=== PATIENT | male | born 1965 | race Caucasian/White ===

== ENCOUNTER 2018-04-10 08:19 | Observation (INO) | payer BC, OTHER ==
[2018-04-10] MEDS ORDERED: KETOROLAC 30 MG/ML INJ ONE ×2 (09:18→16:20)
[2018-04-10 09:26] LABS: Absolute Lymphocytes (CBC) 1.2 K/uL (0.7-4.9); Absolute Monocytes 1.1 K/uL (0.1-1.3); Absolute Neutrophil 7.7 K/uL (1.8-8.0); Basophils % 0.5 % (0-1.3); Eosinophils % 2.5 % (0-4.4); Hematocrit 39.9 % (39.6-49.0); MCH 32.2 pg (27.0-35.0); MCV 93.2 fL (80-100); MPV 7.6 fL (7.6-11.3); Monocytes % 10.5 % (3.3-12.3); RBC Red Blood Cell Count 4.29 M/uL (4.33-5.43)
--- NOTE | 2018-04-10 09:26 | RAD REPORT ---
EXAM DESCRIPTION: CT - Stone Protocol - 04/10/2018 9:12 am CLINICAL HISTORY: Abdominal pain./right flank pain with hematuria COMPARISON: None. TECHNIQUE: Computed axial tomography of the abdomen pelvis was obtained without oral or IV contrast. Lack of IV and oral contrast limits evaluation of solid organs, bowel, and vessels. Coronal reformat maria ines images were obtained and reviewed. All CT scans are performed using dose optimization technique as appropriate and may include automated exposure control or mA/KV adjustment according to patient size. FINDINGS: A tiny left nonobstructing renal calculi Marked right hydronephrosis and right hydroureter. 8 millimeter calculus right UVJ Hounsfield unit 17 00. The liver, spleen, pancreas and adrenals appear grossly normal There is no evidence of diverticulitis. The appendix appears normal Small umbilical hernia IMPRESSION: A 8 millimeter calculus right UPJ with marked right hydronephrosis
[2018-04-10 09:39] LABS: Potassium 3.8 mmol/L (3.5-5.1)
[2018-04-10] MEDS ORDERED: CEFTRIAXONE/SWI 1gm 1 GM/10 ML SYR ONE (09:51)
[2018-04-10] MEDS ORDERED: MORPHINE 4 MG/ML SYR ONE ×2 (09:53→15:49)
--- NOTE | 2018-04-10 10:15 | ER ---
Nurse's Notes [facility] Name: Azeem Suarez Age: 53 yrs Sex: Male : 1965 Arrival Date: 04/10/2018 Time: 08:22 Bed 6 Private MD: None, None Diagnosis: Hydronephrosis with renal and ureteral calculous obstruction;Intractable abdominal pain Presentation: 04/10 08:25 Presenting complaint: Patient states: right flank pain that began yesterday. Pt reports aa5 nausea, denies vomiting. Pt also states "there has been some blood in my urine". 08:25 Transition of care: patient was not received from another setting of care. Onset of aa5 symptoms was April 2018. Risk Assessment: Do you want to hurt yourself or someone else? Patient reports no desire to harm self or others. Initial Sepsis Screen: Does the patient meet any 2 criteria? No. Patient's initial sepsis screen is negative. Does the patient have a suspected source of infection? No. Patient's initial sepsis screen is negative. Care prior to arrival: None. 08:25 Method Of Arrival: Ambulatory aa5 08:25 Acuity: NOÉ 3 aa5 Historical: - Allergies: 08:27 No Known Allergies; aa5 - Home Meds: 08:27 Unknown anxiety medication PRN [Active]; aa5 08:25 Adderall oral oral [Active]; aa5 - PMHx: 08:27 Anxiety; ADD/ADHD; Kidney stones; aa5 - PSHx: 08:27 Hernia repair; aa5 - Immunization history:: Flu vaccine is up to date. - Social history:: Smoking status: Patient uses tobacco products, smokes one-half pack cigarettes per day. - Ebola Screening: : No symptoms or risks identified at this time. Screenin:45 Abuse screen: Denies threats or abuse. Nutritional screening: No deficits noted. aa5 Tuberculosis screening: No symptoms or risk factors identified. Fall Risk None identified. Assessment: 08:30 General: Appears comfortable, Behavior is calm, cooperative. Pain: Complains of pain in aa5 right flank Pain does not radiate. Pain currently is 7 out of 10 on a pain scale. Quality of pain is described as sharp, shooting, Pain began 1 day ago. Is continuous. Neuro: Level of Consciousness is awake, alert, obeys commands, Oriented to person, place, time, situation. Cardiovascular: Heart tones S1 S2 present Rhythm is regular. Respiratory: Airway is patent Respiratory effort is even, unlabored, Respiratory pattern is regular, symmetrical. GI: Abdomen is round non-distended, Bowel sounds present X 4 quads. Abd is soft X 4 quads Abdomen is tender to palpation in anterior aspect of right lateral abdomen Reports nausea, Patient currently denies vomiting. : Reports blood in urine. EENT: No signs and/or symptoms were reported regarding the EENT system. Derm: Skin is pink, warm \\T\\ dry. Musculoskeletal: Range of motion: intact in all extremities. 09:43 Reassessment: Patient and/or family updated on plan of care and expected duration. Pain aa5 level reassessed. Patient is alert, oriented x 3, equal unlabored respirations, skin warm/dry/pink. Patient states symptoms have not improved. Pain: Pain currently is 8 out of 10 on a pain scale. 10:05 Reassessment: Pt asking to leave ER to go outside and get his cellphone from his car, aa5 pt was reminded that he just received morphine and needs to stay in bed, pt verbalizes understanding. . 10:30 Reassessment: To bedside to administer Dilaudid, pt states "I really need to go get my aa5 phone from my car because I need to call my employer, I will be right back I promise". Pt notified that he is being hospitalized and must stay in ER room 6. Dilaudid on hold per PA at this time. Pt was also notified of NPO status . 10:40 Reassessment: Pt was seen walking out of ER, pt states "I am coming right back I aa5 promise" . 11:00 Reassessment: Pt back in ER Room 6. Pt states "I am going to make some phone calls and aa5 then I can get the Dilaudid after" . 11:25 Reassessment: Patient and/or family updated on plan of care and expected duration. Pain aa5 level reassessed. Patient is alert, oriented x 3, equal unlabored respirations, skin warm/dry/pink. Pt sitting up in bed watching TV. . 11:40 Reassessment: Patient is alert, oriented x 3, equal unlabored respirations, skin aa5 warm/dry/pink. Patient states feeling better. Pain: Pain currently is 5 out of 10 on a pain scale. 12:20 Reassessment: Patient and/or family updated on plan of care and expected duration. Pain aa5 level reassessed. Patient is alert, oriented x 3, equal unlabored respirations, skin warm/dry/pink. Dr. Alejo at bedside . 13:15 Reassessment: Patient is alert, oriented x 3, equal unlabored respirations, skin aa5 warm/dry/pink. 13:15 Pain: Pain currently is 4 out of 10 on a pain scale. aa5 Vital Signs: 08:30 BP 124 / 86; Pulse 88; Resp 16 S; Temp 97.9(O); Pulse Ox 98% on R/A; Weight 81.65 kg aa5 (R); Height 5 ft. 11 in. (180.34 cm) (R); Pain 7/10; 09:30 BP 124 / 83; Pulse 80; Resp 16 S; Pulse Ox 98% on R/A; aa5 11:20 BP 129 / 82; Pulse 85; Resp 16 S; Pulse Ox 98% on R/A; Pain 7/10; aa5 13:15 BP 108 / 70; Pulse 81; Resp 18 S; Temp 97.5(O); Pulse Ox 98% on R/A; aa5 08:30 Body Mass Index 25.10 (81.65 kg, 180.34 cm) aa5 ED Course: 08:22 Patient arrived in ED. dl4 08:24 None, None is Private Physician. dl4 08:25 Arm band placed on Patient placed in an exam room, on a stretcher. aa5 08:25 Patient has correct armband on for positive identification. Placed in gown. Bed in low aa5 position. Call light in reach. Side rails up X2. 08:34 Jayla Miguel, ISAURA is Primary Nurse. aa5 08:36 Zoltan Zhang PA is PHCP. jr8 08:36 Sukh Chu MD is Attending Physician. jr8 08:39 Triage completed. aa5 08:45 Inserted saline lock: 20 gauge in left forearm, using aseptic technique. IV inserted by aa5 Leigha Andersen RN. 09:56 X-ray completed. Portable x-ray completed in exam room. Patient tolerated procedure ls3 well. 10:14 Evelia Gaitan MD is Hospitalizing Provider. jr8 10:44 No provider procedures requiring assistance completed. aa5 13:20 Patient admitted, IV remains in place. aa5 Administered Medications: 09:20 Drug: TORadol 30 mg Route: IVP; Site: left forearm; aa5 09:45 Follow up: Response: No adverse reaction; Pain is unchanged, physician notified jl7 09:58 Drug: Phenergan 12.5 mg Route: IVP; Site: left forearm; jl7 10:05 Follow up: Response: No adverse reaction aa5 10:00 Drug: morphine 4 mg Route: IVP; Site: left forearm; jl7 10:05 Follow up: Response: No adverse reaction aa5 10:02 Drug: Rocephin 1 grams Route: IV; Rate: calculated rate; Site: left forearm; jl7 10:15 Follow up: Response: No adverse reaction aa5 11:25 Drug: Dilaudid 1 mg Route: IVP; Site: left forearm; aa5 11:30 Follow up: Response: No adverse reaction aa5 Outcome: 10:14 Decision to Hospitalize by Provider. jr8 13:20 Admitted to Med/surg accompanied by tech, via wheelchair, room 417, with chart, Report aa5 called to ISAURA Gallego 13:20 Condition: stable 13:20 Instructed on the need for admit, Demonstrated understanding of instructions. 13:46 Patient left the ED. aa5 Signatures: Jayla Miguel RN RN aa5 Zoltan Zhang PA PA jr8 David Mora RN RN jl7 Cyril Lopez3 Shakir Pham dl4 Corrections: (The following items were deleted from the chart) 08:46 08:27 Home Meds: Unknown adhd medication; aa5 aa5 12:36 11:00 Inserted saline lock: 20 gauge in left forearm, using aseptic technique. IV aa5 inserted by Leigha Dubose RN aa5 12:38 08:45 Inserted saline lock: 20 gauge in left forearm, using aseptic technique. IV aa5 inserted by Leigha Dubose RN aaJamshid 13:44 13:20 Reassessment: Patient is alert, oriented x 3, equal unlabored respirations, skin aa5 warm/dry/pink. aa5 13:46 10:30 Reassessment: To bedside to administer Dilaudid, pt states "I really need to go aa5 get my phone from my car because I need to call my employer, I will be right back I promise". Pt notified that he is being hospitalized and must stay in ER room 6. Dilaudid on hold per PA at this time. . aa5
--- NOTE | 2018-04-10 10:15 | EDPHYS ---
Physician Documentation [facility] Name: Azeem Suarez Age: 53 yrs Sex: Male : 1965 Arrival Date: 04/10/2018 Time: 08:22 Bed 6 Private MD: None, None ED Physician Sukh Chu HPI: 04/10 09:11 This 53 yrs old Male presents to ER via Ambulatory with complaints of Low jr8 Back Pain, Urinary Problem. 09:11 The patient complains of pain in the right flank. The pain does not radiate. Onset: The jr8 symptoms/episode began/occurred suddenly, 3 day(s) ago. Modifying factors: The symptoms are alleviated by nothing. the symptoms are aggravated by movement. Associated signs and symptoms: Pertinent positives: dysuria. Severity of pain: At its worst the pain was moderate in the emergency department the pain is unchanged. The patient has experienced similar episodes in the past, a few times. The patient has not recently seen a physician. history of renal stones in past . Historical: - Allergies: 08:27 No Known Allergies; aa5 - Home Meds: 08:27 Unknown anxiety medication PRN [Active]; aa5 08:25 Adderall oral oral [Active]; aa5 - PMHx: 08:27 Anxiety; ADD/ADHD; Kidney stones; aa5 - PSHx: 08:27 Hernia repair; aa5 - Immunization history:: Flu vaccine is up to date. - Social history:: Smoking status: Patient uses tobacco products, smokes one-half pack cigarettes per day. - Ebola Screening: : No symptoms or risks identified at this time. ROS: 09:11 Eyes: Negative for injury, pain, redness, and discharge, ENT: Negative for injury, jr8 pain, and discharge, Neck: Negative for injury, pain, and swelling, Cardiovascular: Negative for chest pain, palpitations, and edema, Respiratory: Negative for shortness of breath, cough, wheezing, and pleuritic chest pain, Abdomen/GI: Negative for abdominal pain, nausea, vomiting, diarrhea, and constipation, MS/Extremity: Negative for injury and deformity, Skin: Negative for injury, rash, and discoloration, Neuro: Negative for headache, weakness, numbness, tingling, and seizure. 09:11 Back: Positive for flank pain. 09:11 : Positive for hematuria. Exam: 09:11 Eyes: Pupils equal round and reactive to light, extra-ocular motions intact. Lids and jr8 lashes normal. Conjunctiva and sclera are non-icteric and not injected. Cornea within normal limits. Periorbital areas with no swelling, redness, or edema. ENT: Nares patent. No nasal discharge, no septal abnormalities noted. Tympanic membranes are normal and external auditory canals are clear. Oropharynx with no redness, swelling, or masses, exudates, or evidence of obstruction, uvula midline. Mucous membranes moist. Neck: Trachea midline, no thyromegaly or masses palpated, and no cervical lymphadenopathy. Supple, full range of motion without nuchal rigidity, or vertebral point tenderness. No Meningismus. Cardiovascular: Regular rate and rhythm with a normal S1 and S2. No gallops, murmurs, or rubs. Normal PMI, no JVD. No pulse deficits. Respiratory: Lungs have equal breath sounds bilaterally, clear to auscultation and percussion. No rales, rhonchi or wheezes noted. No increased work of breathing, no retractions or nasal flaring. Skin: Warm, dry with normal turgor. Normal color with no rashes, no lesions, and no evidence of cellulitis. MS/ Extremity: Pulses equal, no cyanosis. Neurovascular intact. Full, normal range of motion. Neuro: Awake and alert, GCS 15, oriented to person, place, time, and situation. Cranial nerves II-XII grossly intact. Motor strength 5/5 in all extremities. Sensory grossly intact. Cerebellar exam normal. Normal gait. 09:11 Abdomen/GI: Inspection: abdomen appears normal, Bowel sounds: active, all quadrants, Palpation: soft, in all quadrants, mild abdominal tenderness, in the anterior aspect of right lateral abdomen and posterior aspect of right lateral abdomen, mass, is not appreciated, rebound tenderness, is not appreciated, voluntary guarding, is not appreciated, involuntary guarding, is not appreciated, no appreciated organomegaly, Indicators: McBurney's point is not tender, Abdalla's sign is negative, Rovsing's sign is negative. 09:11 Back: pain, that is moderate, of the right flank, ROM is normal, normal spinal alignment noted, CVA tenderness, that is mild, is noted on the right, vertebral tenderness, is not appreciated. Vital Signs: 08:30 BP 124 / 86; Pulse 88; Resp 16 S; Temp 97.9(O); Pulse Ox 98% on R/A; Weight 81.65 kg aa5 (R); Height 5 ft. 11 in. (180.34 cm) (R); Pain 7/10; 09:30 BP 124 / 83; Pulse 80; Resp 16 S; Pulse Ox 98% on R/A; aa5 11:20 BP 129 / 82; Pulse 85; Resp 16 S; Pulse Ox 98% on R/A; Pain 7/10; aa5 13:15 BP 108 / 70; Pulse 81; Resp 18 S; Temp 97.5(O); Pulse Ox 98% on R/A; aa5 08:30 Body Mass Index 25.10 (81.65 kg, 180.34 cm) aa5 MDM: 08:36 Patient medically screened. jr8 08:36 Patient medically screened. ovi 10:12 Data reviewed: vital signs, nurses notes, lab test result(s), radiologic studies, CT [facility] scan, plain films. Data interpreted: Pulse oximetry: on room air is 98 %. Interpretation: normal. Counseling: I had a detailed discussion with the patient and/or guardian regarding: the historical points, exam findings, and any diagnostic results supporting the discharge/admit diagnosis, lab results, radiology results, the need for further work-up and treatment in the hospital. ED course: Consulted Dr. Alejo. Will see patient for stent placement. To admit to hospital medicine . 04/10 08:42 Order name: Basic Metabolic Panel [facility] 04/10 08:42 Order name: CBC with Diff [facility] 04/10 08:42 Order name: Creatinine for Radiology [facility] 04/10 08:42 Order name: Urine Microscopic Only [facility] 04/10 09:34 Order name: CBC with Automated Diff; Complete Time: 09:38 EDMS 04/10 09:39 Order name: Basic Metabolic Panel; Complete Time: 09:41 EDMS 04/10 09:01 Order name: CT Stone Protocol [facility] 04/10 09:26 Order name: CT; Complete Time: 09:32 EDMS 04/10 09:39 Order name: Creatinine (Radiology Only); Complete Time: 09:41 EDMS 04/10 09:43 Order name: XRAY KUB [facility] 04/10 10:51 Order name: RAD; Complete Time: 10:53 EDIL 04/10 11:52 Order name: Urine Microscopic Only; Complete Time: 11:54 [facility] 04/10 08:42 Order name: IV Saline Lock; Complete Time: 09:05 [facility] 04/10 08:42 Order name: Labs collected and sent; Complete Time: 09:05 8 04/10 08:42 Order name: Urine Dipstick-Ancillary (obtain specimen); Complete Time: 11:32 jr8 Administered Medications: 09:20 Drug: TORadol 30 mg Route: IVP; Site: left forearm; aa5 09:45 Follow up: Response: No adverse reaction; Pain is unchanged, physician notified jl7 09:58 Drug: Phenergan 12.5 mg Route: IVP; Site: left forearm; jl7 10:05 Follow up: Response: No adverse reaction aa5 10:00 Drug: morphine 4 mg Route: IVP; Site: left forearm; jl7 10:05 Follow up: Response: No adverse reaction aa5 10:02 Drug: Rocephin 1 grams Route: IV; Rate: calculated rate; Site: left forearm; jl7 10:15 Follow up: Response: No adverse reaction aa5 11:25 Drug: Dilaudid 1 mg Route: IVP; Site: left forearm; aa5 11:30 Follow up: Response: No adverse reaction aa5 Disposition: 18:06 Co-signature as Attending Physician, Sukh Chu MD I agree with the assessment and ovi plan of care. Disposition: 04/10/18 10:14 Hospitalization ordered by Evelia Gaitan for Observation. Preliminary diagnosis are Hydronephrosis with renal and ureteral calculous obstruction, Intractable abdominal pain. - Bed requested for Telemetry/MedSurg (observation). - Status is Observation. aa5 - Condition is Stable. - Problem is new. - Symptoms are unchanged. UTI on Admission? No Signatures: Dispatcher [employer] [facility] Minda Monsivais Corey, MD MD cha Calderon, Audri RN RN aa5 Zoltan Zhang PA PA jr8 David Mora RN RN jl7 Corrections: (The following items were deleted from the chart) 08:46 08:27 Home Meds: Unknown adhd medication; aa5 aa5 11:59 10:14 Hospitalization Ordered by Evelia Gaitan MD for Observation. Preliminary bd diagnosis is Hydronephrosis with renal and ureteral calculous obstruction; Intractable abdominal pain. Bed requested for Telemetry/MedSurg (observation). Status is Observation. Condition is Stable. Problem is new. Symptoms are unchanged. UTI on Admission? No. jr8 13:46 11:59 04/10/2018 10:14 Hospitalization Ordered by Evelia Gaitan MD for Observation. aa5 Preliminary diagnosis is Hydronephrosis with renal and ureteral calculous obstruction; Intractable abdominal pain. Bed requested for Telemetry/MedSurg (observation). Status is Observation. Condition is Stable. Problem is new. Symptoms are unchanged. UTI on Admission? No. bd
--- NOTE | 2018-04-10 10:50 | RAD REPORT ---
EXAM DESCRIPTION: RAD - Abdomen 1 View (KUB) - 04/10/2018 9:58 am CLINICAL HISTORY: ABD PAIN Pain COMPARISON: Stone Protocol dated 04/10/2018 FINDINGS: The bowel gas pattern is non-obstructive. No evidence of free air or pneumatosis. Triangul ar calcification in the inferior right hemipelvis is compatible with a stone at the right UVJ.
[2018-04-10] MEDS ORDERED: HYDROMORPHONE HCL 1 MG/ML INJ ONE (11:26)
[2018-04-10 11:51] LABS: Calcium Oxalate Crystals- Ur PRESENT (NONE SEEN); Urine Bacteria 20-50 /HPF (NONE SEEN); Urine Culture Reflex Order REFLEXED
[2018-04-10] MEDS ORDERED: ACETAMINOPHEN 500 MG TAB PO PRN (14:06)
[2018-04-10] MEDS ORDERED: ONDANSETRON 4 MG/2 ML VIAL IV PRN (14:06)
[2018-04-10] MEDS ORDERED: MORPHINE 4 MG/ML SYR IV PRN (14:06)
[2018-04-10] MEDS ORDERED: MORPHINE 2 MG/ML SYR IV PRN (15:26)
[2018-04-10] MEDS ORDERED: Ringers Lactate 1,000 ML IV ONE (15:42)
[2018-04-10] MEDS: NA CHLORIDE 0.9% 1,000 ML IV SCH ×2 (16:00→19:16)
[2018-04-10] MEDS ORDERED: FENTANYL CITR 100 MCG/2 ML ONE (16:19)
[2018-04-10] MEDS ORDERED: PROPOFOL 200 MG/20 ML VIAL IV ONE (16:19)
[2018-04-10] MEDS ORDERED: DEXAMETHASONE 10 MG/ML VIAL ONE (16:20)
--- NOTE | 2018-04-10 17:49 | CON ---
History Of Present Illness: A 53-year-old male, who has been having stones now since November. Last year, he was on the waiting list in [place] in [place], but nobody called him to take out the stones, so he has been having pain constantly on and off, got worse, so he came to the emerge ncy room. He was diagnosed with an 8 mm stone at the right UVJ with hydronephrosis. Patient had ice this morning and drank half a cup of ice with water at 12:30 p.m. today. He is on D-amphetamine for ADHD, so there may be anesthetic issue with this. Allergies: NO KNOWN DRUG ALLERGIES. Home Medications: D-amphetamine and Adderall. Past Medical History: Anxiety, kidney stones. Past Surgical History: Hernia repair. Immunizations: Up to date. Social History: Smoking status: Smokes about half a pack per day. Ebola screen negative. Review of Systems: Ten-point review of systems otherwise negative. Physical Examination: Vital Signs: 124/86, 88 pulse, respirations 16, temperature 97.9, weight 81 kg, 98% sats on room air , height 5 feet 11 inches. HEENT: Atraumatic, normocephalic. Lungs: Clear. Heart: S1, S2. Abdomen: Soft, nontender. : Both testicles descended. Phallus circumcised. No lesions. ALMA deferred. Extremities: Normal range of motion. Laboratory Data: White count 10.3, H and H 13.8 and 40, platelet count 362. Chemistry: Sodium 141, potassium 3.8, chloride 110, bicarb 25, BUN 17, creatinine 1, glucose 108. UA shows 10-20 rbc's, 5- 10 wbc's, calcium oxalate crystals, bacteria 20-50. CT scan; as mentioned above, 8 mm stone in right UVJ, 1700 Hounsfield units. Assessment: Stone as above. Plan: To do a cystoscopy, right retrograde pyelogram, ureteroscopy. We will try EHL lithotripsy of the stone and remove the stone and place a double-J stent. All the general information, alternatives , and risks were given to the patient, he wishes to proceed. BAYLEE/NAVJOT Voice ID: [id number] Report ID: [id number]
[2018-04-10] MEDS ORDERED: Mastisol Adhesive Liq ONE (18:13)
--- NOTE | 2018-04-10 18:25 | RAD REPORT ---
EXAM DESCRIPTION: RAD - Urethrocystogrphy Retrograde - 04/10/2018 6:18 pm CLINICAL HISTORY: CYSTO Flank pain COMPARISON: No comparisons FINDINGS: Fluoroscopic imaging of the abdomen was performed as part of a stent procedure. Details of the procedure is not available. Total fluoro time: 1.5 minutes
[2018-04-11] MEDS: HYDROMORPHONE HCL 0.5 MG/0.5 ML INJ IV PRN ×3 (01:55→13:53)
[2018-04-11 04:15] LABS: Absolute Lymphocytes (CBC) 0.5 K/uL (0.7-4.9); Absolute Monocytes 0.2 K/uL (0.1-1.3); Absolute Neutrophil 9.1 K/uL (1.8-8.0); Basophils % 0.1 % (0-1.3); Hematocrit 42.8 % (39.6-49.0); Lymphocytes % 5.5 % (15.3-44.8); MCH 32.1 pg (27.0-35.0); MCV 94.2 fL (80-100); MPV 7.7 fL (7.6-11.3); Monocytes % 1.8 % (3.3-12.3); RBC Red Blood Cell Count 4.54 M/uL (4.33-5.43)
[2018-04-11 04:26] LABS: Potassium 4.1 mmol/L (3.5-5.1)
[2018-04-11 04:59] LABS: Blood Morphology Comment NOT SEEN (NOT SEEN); Platelet Estimate ADEQ
[2018-04-11] MEDS ORDERED: CEFTRIAXONE/SWI 1gm 1 GM/10 ML SYR IVP SCH (09:00)
--- NOTE | 2018-04-11 11:00 | P.HP ---
Certification for Inpatient Patient admitted to: Observation With expected LOS: <2 Midnights Patient will require the following post-hospital care: None Practitioner: I am a practitioner with admitting privileges, knowledge of patient current condition, hospital course, and medical plan of care. Services: Services provided to patient in accordance with Admission requirements found in Title 42 Section 412.3 of the Code of Federal Regulations Patient History Date of Service: 04/10/18 Reason for admission: Obstructive uropathy History of Present Illness: Patient is a 53-year-old gentleman who came into the hospital with flank pain. Patient was found to have nephrolithiasis with hydroureter. His CT scan revealed that he had an 8 mm stone in the right the P.J.. This was causing significant hydronephrosis. The patient's creatinine was elevated and his urine was infected. Patient was admitted to the hospital for further intervention. Patient has had more than 1 kidney stone in the past. He said he has had 5-6 procedures. He normally is out of town when this happens. He is wide awake and ambulating throughout the hallway although he states he is in significant pain. He will need further intervention in a.m.. Allergies No Known Drug Allergies Allergy (Verified 04/10/18 14:02) Anaphylaxis No Known Food Allergies Allergy (Verified 04/10/18 14:02) Rash Home Medications: LORazepam [Lorazepam] 2 mg PO DAILY PRN 04/10/18 - Past Medical/Surgical History -: hernia repair -: ankle surgery -: broken thumb surgery -: Cystoscopy - Family History Father History Unknown: Yes Mother History Unknown: Yes - Social History Smoking Status: Current some day smoker Alcohol use: No CD- Drugs: No Caffeine use: Yes Place of Residence: Home Review of Systems 10-point ROS is otherwise unremarkable Physical Examination - Vital Signs Temperature: 98.8 F Blood Pressure: 126/75 Pulse: 123 Respirations: 18 Pulse Ox (%): 97 - Physical Exam General: Alert, In no apparent distress, Oriented x3 ( the) HEENT: Atraumatic, PERRLA, Mucous membr. moist/pink, EOMI, Sclerae nonicteric Neck: Supple, 2+ carotid pulse no bruit, No LAD, Without JVD or thyroid abnormality Respiratory: Clear to auscultation bilaterally, Normal air movement Cardiovascular: Regular rate/rhythm, Normal S1 S2, No murmurs Gastrointestinal: Normal bowel sounds, Soft and benign, Non-distended, No masses , No rebound, No guarding, Tenderness Musculoskeletal: No clubbing, No swelling, No tenderness Integumentary: No rashes Neurological: Normal gait, Normal speech, Normal strength at 5/5 x4 extr, Normal tone, Normal affect Lymphatics: No axilla or inguinal lymphadenopathy Assessment & Plan - Problems (Diagnosis) (1) Right nephrolithiasis Current Visit: Yes Status: Acute (2) Hydronephrosis with ureteropelvic junction (UPJ) obstruction Current Visit: Yes Status: Acute (3) DAMIAN (acute kidney injury) Current Visit: Yes Status: Acute (4) UTI (urinary tract infection) Current Visit: Yes Status: Acute - Plan Plan: 1. Aggressive IV hydration 2. IV antibiotics 3. Urology consultation 4. NPO after midnight 5. Pain control 6. Monitor renal function 7. GI and DVT prophylaxis Discharge Plan: Home Plan to discharge in: 48 Hours - Advance Directives Does patient have a Living Will: No Does patient have a Durable POA for Healthcare: No - Code Status/Comfort Care Code Status Assessed: Yes Code Status: Full Code Critical Care: No Time Spent Managing PTS Care (In Minutes): 50
[2018-04-11] MEDS: NA CHLORIDE 0.9% 1,000 ML IV SCH (12:00)
[2018-04-11 12:47] LABS: Barbiturates NEGATIVE (NEGATIVE); Benzodiazepines NEGATIVE (NEGATIVE); Cocaine NEGATIVE (NEGATIVE); METHAMPHETAM POSITIVE (NEGATIVE); Methadone NEGATIVE (NEGATIVE); Opiates NEGATIVE (NEGATIVE); Phencyclidine NEGATIVE (NEGATIVE); THC Cannibis NEGATIVE (NEGATIVE)
--- NOTE | 2018-04-11 17:45 | P.SSS ---
Patient History Date of Service: 04/11/18 Reason for admission: Obstructive uropathy History of Present Illness: Patient is a 53-year-old gentleman who came into the hospital with flank pain. Patient was found to have nephrolithiasis with hydroureter. His CT scan revealed that he had an 8 mm stone in the right the P.J.. This was causing significant hydronephrosis. The patient's creatinine was elevated and his urine was infected. Patient was admitted to the hospital for further intervention. Patient has had more than 1 kidney stone in the past. He said he has had 5-6 procedures. He normally is out of town when this happens. He is wide awake and ambulating throughout the hallway although he states he is in significant pain. He will need further intervention in a.m.. Allergies No Known Drug Allergies Allergy (Verified 04/10/18 14:02) Anaphylaxis No Known Food Allergies Allergy (Verified 04/10/18 14:02) Rash Home Medications: LORazepam [Lorazepam] 2 mg PO DAILY PRN 04/10/18 Cephalexin [Keflex] 500 mg PO Q12H #14 cap 04/11/18 Oxybutynin Chloride [Ditropan] 5 mg PO TID #9 tab 04/11/18 traMADol HCL [Ultram] 50 mg PO Q6H PRN #24 tab 04/11/18 - Past Medical/Surgical History -: hernia repair -: ankle surgery -: broken thumb surgery -: Cystoscopy - Family History Father History Unknown: Yes Mother History Unknown: Yes - Social History Smoking Status: Current some day smoker Alcohol use: No CD- Drugs: No Caffeine use: Yes Place of Residence: Home Review of Systems 10-point ROS is otherwise unremarkable Physical Examination - Vital Signs Temperature: 100.3 F Blood Pressure: 130/78 Pulse: 118 Respirations: 17 Pulse Ox (%): 95 - Physical Exam General: Alert, In no apparent distress HEENT: Atraumatic, PERRLA, Mucous membr. moist/pink, EOMI, Sclerae nonicteric Neck: Supple, 2+ carotid pulse no bruit, No LAD, Without JVD or thyroid abnormality Respiratory: Clear to auscultation bilaterally, Normal air movement Cardiovascular: Regular rate/rhythm, Normal S1 S2 Gastrointestinal: Normal bowel sounds, No tenderness Musculoskeletal: No tenderness Integumentary: No rashes Neurological: Normal gait, Normal speech, Normal strength at 5/5 x4 extr, Normal tone, Normal affect Lymphatics: No axilla or inguinal lymphadenopathy - Diagnosis (Problem(s)) (1) DAMIAN (acute kidney injury) Status: Acute (2) Hydronephrosis with ureteropelvic junction (UPJ) obstruction Status: Acute (3) Hydroureter Status: Acute (4) Right nephrolithiasis Status: Acute (5) UTI (urinary tract infection) Status: Acute Treatment Summary: Overall during the hospital stay patient remained stable Patient was initially admitted to the hospital for nephrolithiasis. Urology was consulted. Patient had a cystoscopy done here in the hospital along with stent placement. Patient tolerated the procedure well and thus was discharged home under stable condition was asked to follow up with urology in about 1-2 days post discharge. Patient was given a prescription for pain management along with antibiotics as well. - Disposition Disposition: ROUTINE DISCHARGE Condition: GOOD Diet: Regular Activity: Ad nick
== END 2018-04-11 15:50 | disposition home or self-care (01) ==
LOC: ER 08:19 → ERHOLD 10:38 → 4TH 13:21
PROVIDERS: ADMIT Family Medicine; ATTEND Hospitalist
PROC: 0T768DZ Dilation of Right Ureter with Intraluminal Device, Via Natural or Artificial Opening Endoscopic (ICD-10-PCS; 2018-04-10)
PROC: 0TF68ZZ Fragmentation in Right Ureter, Via Natural or Artificial Opening Endoscopic (ICD-10-PCS; principal; 2018-04-10 16:45)
DX: N13.2 Hydronephrosis with renal and ureteral calculous obstruction (principal); N39.0 Urinary tract infection, site not specified; N17.9 Acute kidney failure, unspecified; F90.9 Attention-deficit hyperactivity disorder, unspecified type; F17.210 Nicotine dependence, cigarettes, uncomplicated
CPT/HCPCS: 36415; 51610; 74018; 74176; 74450; 76377; 80048; 80307; 81015; 82360; 85025; 87086; 87088; 88300; 96374; 96375; 99285; G0378; J0696; J1100; J1170; J2270; J2704; J3010; J7030; Q9967

== ENCOUNTER 2018-05-25 11:28 | Emergency (ER) | payer BC ==
--- NOTE | 2018-05-25 12:51 | ER ---
Nurse's Notes [facility] Name: Azeem Suarez Age: 53 yrs Sex: Male : 1965 Arrival Date: 05/25/2018 Time: 11:30 Bed Waiting Private MD: Diagnosis: Presentation: 05/25 11:37 Presenting complaint: RLQ pain z 10 days, worse over last few days. Kidney stents hb removed this morning by Dr. Alejo. Transition of care: patient was not received from another setting of care. Onset of symptoms is unknown. Risk Assessment: Do you want to hurt yourself or someone else? Patient reports no desire to harm self or others. Care prior to arrival: None. 11:37 Method Of Arrival: Ambulatory 11:37 Acuity: NOÉ 3 hb Historical: - Allergies: 11:39 No Known Allergies; hb - Home Meds: 11:39 Adderall Oral [Active]; Unknown anxiety medication PRN [Active]; hb - PMHx: 11:39 ADD/ADHD; Anxiety; Kidney stones; hb - PSHx: 11:39 Hernia repair; Kidney stents; hb - Immunization history:: Adult Immunizations up to date. - Social history:: Smoking status: Patient/guardian denies using tobacco. - Ebola Screening: : No symptoms or risks identified at this time. Vital Signs: 11:38 BP 116 / 89; Pulse 79; Resp 16; Temp 98.7; Pulse Ox 100% on R/A; Pain 7/10; hb ED Course: 11:30 Patient arrived in ED. rg4 11:38 Triage completed. hb 11:40 Arm band placed on. hb Administered Medications: No medications were administered Outcome: 12:50 Patient left the ED. Signatures: Tova Al RN RN Pennie Laguna RN RN Keyla Crane rg4 Corrections: (The following items were deleted from the chart) 11:40 11:37 Presenting complaint: RLQ pain z 10 days, worse over last few days. Ureter stents hb removed this morning by Dr. Alejo hb
== END 2018-05-25 12:50 | disposition left against medical advice (07) ==
LOC: ER 11:28
DX: R10.31 Right lower quadrant pain (principal); Z53.29 Procedure and treatment not carried out because of patient's decision for other reasons

== ENCOUNTER 2020-12-13 18:13 | Emergency (ER) | payer BC ==
[2020-12-13 19:19] LABS: Urine Blood 3+ (Negative); Urine Glucose Negative (Negative); Urine Protein 1+ (Negative)
--- NOTE | 2020-12-13 19:51 | RAD REPORT ---
EXAM DESCRIPTION: CT - Abdomen Pelvis Wo Contrast - 12/13/2020 7:33 pm CLINICAL HISTORY: Abdominal pain. ABD PAIN COMPARISON: Stone Protocol dated 04/10/2018 TECHNIQUE: CT imaging of the abdomen and pelvis was performed without contrast. Solid organ, bowel a nd vascular assessment is limited due to lack of IV and oral contrast. All CT scans are performed using dose optimization technique as appropriate and may include automated exposure control or mA/KV adjustment according to patient size. FINDINGS: The lower lung myles are clear. No focal liver lesions are seen. The gallbladder is unremarkable. The pancreas is unremarkable. The s pleen is unremarkable. 3 millimeter stone in the left mid to distal ureter.There is a [address] one in left kidney. No hydronephrosis is seen. Diverticulosis. No bowel obstruction. Circumferential bladder wall thickening which is nonspecific. Normal appendix. IMPRESSION: 3 millimeter stone in the left mid to distal ureter without hydronephrosis. A limited non-contrast examination was performed as detailed.
[2020-12-13 19:58] LABS: Absolute Lymphocytes (CBC) 0.9 K/uL (0.7-4.9); Basophils % 0.2 % (0-1.3); Hematocrit 52.9 % (39.6-49.0); MPV 7.3 fL (7.6-11.3); RBC Red Blood Cell Count 5.54 M/uL (4.33-5.43)
[2020-12-13 20:17] LABS: Albumin 4.2 g/dL (3.4-5.0); Bilirubin Direct 0.2 mg/dL (0-0.2); Bilirubin Total 0.5 mg/dL (0.2-1.0); Potassium 3.9 mmol/L (3.5-5.1); Protein, Total 7.4 g/dL (6.4-8.2)
[2020-12-13 20:33] LABS: Blood Morphology Comment NOT SEEN (NOT SEEN); Platelet Estimate ADEQ; White Blood Cell Scan OK (OK)
[2020-12-13] MEDS ORDERED: TAMSULOSIN 0.4 MG SR CAP ONE (22:36)
[2020-12-13] MEDS ORDERED: ONDANSETRON 4 MG/2 ML VIAL ONE (22:36)
[2020-12-13] MEDS ORDERED: HYDROMORPHONE HCL 1 MG/ML INJ ONE ×2 (22:36→23:55)
[2020-12-13] MEDS ORDERED: NA CHLORIDE 0.9% 1,000 ML ONE (22:37)
--- NOTE | 2020-12-13 23:29 | ER ---
Nurse's Notes [facility] Name: Azeem Suarez Age: 55 yrs Sex: Male : 1965 Arrival Date: 12/13/2020 Time: 18:16 Bed DIS1 Private MD: Fernando Hasitngs Diagnosis: Calculus of kidney with calculus of ureter-left Presentation: 12/13 18:56 Chief complaint: Patient states: Left flank pain, left back pain, LLQ abdominal pain, kg vomiting starting today. Pt stated, "I've had kidney stones and they felt like this.". Coronavirus screen: Client denies travel out of the [place] in the last 14 days. At this time, unable to obtain information related to travel outside the [place] At this time, the client does not indicate any symptoms associated with coronavirus-19. Ebola Screen: Patient negative for fever greater than or equal to 101.5 degrees Fahrenheit, and additional compatible Ebola Virus Disease symptoms Patient denies exposure to infectious person. Patient denies travel to an Ebola-affected area in the 21 days before illness onset. No symptoms or risks identified at this time. Initial Sepsis Screen: Does the patient meet any 2 criteria? No. Patient's initial sepsis screen is negative. Does the patient have a suspected source of infection? No. Patient's initial sepsis screen is negative. Risk Assessment: Do you want to hurt yourself or someone else? Patient reports no desire to harm self or others. Onset of symptoms was December 13, 2020 at 14:00. 18:56 Method Of Arrival: Ambulatory kg 18:56 Acuity: NOÉ 3 kg Triage Assessment: 18:59 General: Appears in no apparent distress. Behavior is calm, cooperative, appropriate kg for age, quiet. Pain: Complains of pain in Left flank, back, LLQ abdominal pain. GI: Reports vomiting. : Reports burning with urination, since 1400 pain in suprapubic area flank(s), lower quadrant(s). Historical: - Allergies: 18:59 No Known Allergies; kg - Home Meds: 18:59 Adderall Oral [Active]; kg - PMHx: 18:59 ADD/ADHD; Anxiety; Kidney stones; kg - PSHx: 18:59 Hernia; Lithotripsy; kg - Immunization history:: Adult Immunizations up to date, Client reports receiving the 2nd dose of the Covid vaccine, Date received: August 2020 Client reports receiving the 1st dose of the Covid vaccine, July 2020. - Social history:: Smoking status: Patient reports the use of cigarette tobacco products, denies chronic smoking, but will smoke occasionally. Screenin:02 Abuse screen: Denies threats or abuse. Denies injuries from another. Nutritional kg screening: No deficits noted. Tuberculosis screening: No symptoms or risk factors identified. Fall Risk None identified. Assessment: 22:24 General: Appears in no apparent distress. uncomfortable. Pain: Complains of pain in bb right flank. Neuro: Level of Consciousness is awake, alert, obeys commands, Oriented to person, place, time, situation. Cardiovascular: Capillary refill < 3 seconds Patient's skin is warm and dry. Respiratory: Respiratory effort is even, unlabored, Respiratory pattern is regular. GI: Bowel sounds present X 4 quads. Abd is soft X 4 quads. Derm: Skin is pink, warm \\T\\ dry. Musculoskeletal: Circulation, motion, and sensation intact. 23:36 Reassessment: pt c/o pain returning Sukh Page PA notified new orders received pt bb medicated see JUL. 12/14 00:07 Reassessment: Patient is alert, oriented x 3, equal unlabored respirations, skin bb warm/dry/pink. pt verbalized understanding of and agrees to plan of care discharge instructions given pt ambulated with steady gait to exit Patient states feeling better. Vital Signs: 12/13 18:56 BP 119 / 67; Pulse 105; Resp 20; Temp 98.3(TE); Pulse Ox 96% on R/A; Weight 88.45 kg kg (R); Height 5 ft. 10 in. (177.80 cm); Pain 4/10; 22:24 BP 154 / 83 LA Sitting (auto/reg); Pulse 89; Resp 20; Temp 97.6(O); Pulse Ox 97% on R/A;tt3 12/14 00:04 BP 148 / 87 LA Sitting (auto/reg); Pulse 81; Resp 20; Temp 97.9(O); Pulse Ox 95% on R/A;tt3 12/13 18:56 Body Mass Index 27.98 (88.45 kg, 177.80 cm) kg ED Course: 12/13 18:16 Patient arrived in ED. as 18:16 Fernando Hastings is Private Physician. as 18:59 Triage completed. kg 19:02 Patient has correct armband on for positive identification. kg 19:34 CT Abd/Pelvis - Without Contrast In Process Unspecified. EDMS 19:43 Sukh Quiroga PA is PHCP. cp 19:43 Franko Tomas MD is Attending Physician. cp 19:46 Sukh Chu MD is Attending Physician. ovi 19:51 Basic Metabolic Panel Sent. kg 19:51 CBC with Diff Sent. kg 19:51 Hepatic Function Sent. kg 19:51 Lipase Sent. kg 22:09 Shayy Rowan, ISAURA is Primary Nurse. bb 22:24 IV is patent, is intact. bb 23:27 Collin Anderson MD is Referral Physician. cp 12/14 00:06 No provider procedures requiring assistance completed. IV discontinued, intact, bb bleeding controlled, No redness/swelling at site. Pressure dressing applied. Administered Medications: 12/13 22:10 CANCELLED (Physician Discretion): Magnesium Sulfate 1 grams IVPB once over 1 hrs bb 22:23 Drug: NS 0.9% 1000 ml Route: IV; Rate: 1 bolus; Site: right antecubital; bb 23:37 Follow up: IV Status: Completed infusion; IV Intake: 950ml bb 22:23 Drug: Zofran (Ondansetron) 4 mg Route: IVP; Site: right antecubital; bb 23:11 Follow up: Response: No adverse reaction bb 23:11 Follow up: Response: No adverse reaction bb 22:23 Drug: Flomax (tamsulosin) 0.4 mg Route: PO; bb 23:12 Follow up: Response: No adverse reaction bb 22:24 Drug: Dilaudid (HYDROmorphone) 1 mg Route: IVP; Site: right antecubital; bb 23:11 Follow up: Response: No adverse reaction; Pain is decreased bb 23:00 Drug: Rocephin (cefTRIAXone) 1 grams Route: IV; Rate: calculated rate; Site: right bb antecubital; 23:05 Follow up: IV Status: Completed infusion; IV Intake: 10ml bb 23:35 Drug: Dilaudid (HYDROmorphone) 1 mg Route: IVP; Site: right antecubital; bb 08/08 00:07 Follow up: Response: No adverse reaction; Pain is decreased; RASS: Alert and Calm (0) bb Intake: 12/13 23:05 IV: 10ml; Total: 10ml. bb 23:37 IV: 950ml; Total: 960ml. bb Outcome: 23:28 Discharge ordered by . dipak 12/14 00:08 Discharged to home ambulatory. bb Condition: stable Discharge instructions given to patient, Instructed on discharge instructions, follow up and referral plans. medication usage, Demonstrated understanding of instructions, follow-up care, medications, Prescriptions given X 4. 00:08 Patient left the ED. bb Signatures: Dispatcher [employer] EDMS Sukh Chu MD MD cha Martinez, Amelia as Ballard, Brenda, RN RN Sukh Ratliff PA PA cp Trim, Tyler tt3 Donna Chaudhari, ISAURA RN kg
--- NOTE | 2020-12-13 23:29 | EDPHYS ---
Physician Documentation [facility] Name: Azeem Suarez Age: 55 yrs Sex: Male : 1965 Arrival Date: 12/13/2020 Time: 18:16 Bed DIS1 Private MD: Fernando Hastings ED Physician Sukh Chu HPI: 12/13 20:00 This 55 yrs old Male presents to ER via Ambulatory with complaints of cp Possible Kidney Stone. 20:00 The patient complains of pain in the left flank. cp 20:00 The pain radiates to the back and abdomen. Onset: The symptoms/episode began/occurred cp today. Associated signs and symptoms: Pertinent positives: nausea, Pertinent negatives: diarrhea, dysuria, fever, pain radiating to the lower extremities, active vomiting. Severity of pain: in the emergency department the pain is unchanged despite home interventions. The patient has experienced similar episodes in the past, today's symptoms are similar, to when the patient was apparently diagnosed with kidney stone. Historical: - Allergies: 18:59 No Known Allergies; kg - Home Meds: 18:59 Adderall Oral [Active]; kg - PMHx: 18:59 ADD/ADHD; Anxiety; Kidney stones; kg - PSHx: 18:59 Hernia; Lithotripsy; kg - Immunization history:: Adult Immunizations up to date, Client reports receiving the 2nd dose of the Covid vaccine, Date received: August 2020 Client reports receiving the 1st dose of the Covid vaccine, July 2020. - Social history:: Smoking status: Patient reports the use of cigarette tobacco products, denies chronic smoking, but will smoke occasionally. ROS: 20:05 Eyes: Negative for injury, pain, redness, and discharge. cp 20:05 Constitutional: Negative for body aches, chills, fever, poor PO intake. 20:05 ENT: Negative for ear pain, sore throat, difficulty swallowing, difficulty handling secretions. 20:05 Cardiovascular: Negative for chest pain, edema, palpitations. 20:05 Respiratory: Negative for cough, shortness of breath, wheezing. 20:05 Abdomen/GI: Positive for abdominal pain, nausea, Negative for diarrhea, constipation, active vomiting. 20:05 Back: Positive for flank pain, on the left, Negative for injury or acute deformity, decreased range of motion. 20:05 : Negative for urinary symptoms, testicular pain 20:05 Neuro: Negative for altered mental status, headache, weakness. 20:05 All other systems are negative. Exam: 20:10 Constitutional: The patient appears in no acute distress, alert, awake, cp non-diaphoretic, non-toxic, well developed, well nourished, uncomfortable. 20:10 Head/Face: Normocephalic, atraumatic. cp 20:10 Eyes: Periorbital structures: appear normal, Conjunctiva: normal, no exudate, no cp injection, Sclera: no appreciated abnormality, Lids and lashes: appear normal, bilaterally. 20:10 ENT: External ear(s): are unremarkable, Nose: is normal, Mouth: Lips: moist, Oral cp mucosa: moist, Posterior pharynx: Airway: no evidence of obstruction, patent. 20:10 Chest/axilla: Inspection: normal, Palpation: is normal, no crepitus, no tenderness. 20:10 Cardiovascular: Rate: tachycardic, Rhythm: regular, Edema: is not appreciated, JVD: is not appreciated. 20:10 Respiratory: the patient does not display signs of respiratory distress, Respirations: normal, no use of accessory muscles, no retractions, labored breathing, is not present, Breath sounds: are clear throughout, no decreased breath sounds, no stridor, no wheezing. 20:10 Abdomen/GI: Inspection: abdomen appears normal, Bowel sounds: active, all quadrants, Palpation: soft, in all quadrants, moderate abdominal tenderness, in the anterior aspect of left lateral abdomen, posterior aspect of left lateral abdomen, left upper quadrant and left lower quadrant, rebound tenderness, is not appreciated, involuntary guarding, is not appreciated. 20:10 Skin: no rash present. 20:10 Neuro: Orientation: to person, place \T\ time. Mentation: is normal, Motor: moves all fours, strength is normal, Gait: is steady, at a normal pace, without difficulty. Vital Signs: 18:56 BP 119 / 67; Pulse 105; Resp 20; Temp 98.3(TE); Pulse Ox 96% on R/A; Weight 88.45 kg kg (R); Height 5 ft. 10 in. (177.80 cm); Pain 4/10; 22:24 BP 154 / 83 LA Sitting (auto/reg); Pulse 89; Resp 20; Temp 97.6(O); Pulse Ox 97% on R/A;tt3 12/14 00:04 BP 148 / 87 LA Sitting (auto/reg); Pulse 81; Resp 20; Temp 97.9(O); Pulse Ox 95% on R/A;tt3 12/13 18:56 Body Mass Index 27.98 (88.45 kg, 177.80 cm) kg MDM: 12/13 19:46 Patient medically screened. [facility] 23:27 Data reviewed: vital signs, nurses notes, lab test result(s), radiologic studies, CT cp scan. 23:27 Counseling: I had a detailed discussion with the patient and/or guardian regarding: the cp historical points, exam findings, and any diagnostic results supporting the discharge/admit diagnosis, lab results, radiology results, the need for outpatient follow up, a urologist, to return to the emergency department if symptoms worsen or persist or if there are any questions or concerns that arise at home. Response to treatment: the patient's symptoms have markedly improved after treatment, VSS. Pain markedly improved. Patient tolerating po fluids. Will discharge to home for continued monitoring. 12/13 19:19 Order name: Urine Dipstick-Ancillary; Complete Time: 21:37 EDMS 12/13 19:39 Order name: Basic Metabolic Panel; Complete Time: 21:37 kg 12/13 23:27 Interpretation: Normal except: CL 108; GLUC 125; GFR 69. cp 12/13 19:39 Order name: CBC with Diff; Complete Time: 21:37 kg 12/13 21:37 Interpretation: Normal except: WBC 18.50; RBC 5.54; HGB 18.0; HCT 52.9; MPV 7.3; ODILON% cp 90.9; LYM% 5.0; NEUT A 16.8. 12/13 19:39 Order name: Hepatic Function; Complete Time: 21:37 kg 12/13 19:39 Order name: Lipase; Complete Time: 21:37 kg 12/13 20:32 Order name: CBC Smear Scan; Complete Time: 21:37 EDMS 12/13 19:05 Order name: CT Abd/Pelvis - Without Contrast; Complete Time: 21:37 kg 12/13 23:08 Interpretation: Report reviewed. 12/13 21:40 Order name: Urine Culture cp 12/13 19:05 Order name: Urine Dipstick-Ancillary (obtain specimen); Complete Time: 19:51 kg 12/13 19:39 Order name: IV Saline Lock; Complete Time: 19:51 kg 12/13 19:39 Order name: Labs collected and sent; Complete Time: 19:51 kg 12/13 23:07 Order name: PO challenge; Complete Time: 23:11 cp Administered Medications: 22:10 CANCELLED (Physician Discretion): Magnesium Sulfate 1 grams IVPB once over 1 hrs bb 22:23 Drug: NS 0.9% 1000 ml Route: IV; Rate: 1 bolus; Site: right antecubital; bb 23:37 Follow up: IV Status: Completed infusion; IV Intake: 950ml bb 22:23 Drug: Zofran (Ondansetron) 4 mg Route: IVP; Site: right antecubital; bb 23:11 Follow up: Response: No adverse reaction bb 23:11 Follow up: Response: No adverse reaction bb 22:23 Drug: Flomax (tamsulosin) 0.4 mg Route: PO; bb 23:12 Follow up: Response: No adverse reaction bb 22:24 Drug: Dilaudid (HYDROmorphone) 1 mg Route: IVP; Site: right antecubital; bb 23:11 Follow up: Response: No adverse reaction; Pain is decreased bb 23:00 Drug: Rocephin (cefTRIAXone) 1 grams Route: IV; Rate: calculated rate; Site: right bb antecubital; 23:05 Follow up: IV Status: Completed infusion; IV Intake: 10ml bb 23:35 Drug: Dilaudid (HYDROmorphone) 1 mg Route: IVP; Site: right antecubital; bb 12/14 00:07 Follow up: Response: No adverse reaction; Pain is decreased; RASS: Alert and Calm (0) bb Disposition Summary: 12/13/20 23:28 Discharge Ordered Location: Home cp Problem: new cp Symptoms: have improved cp Condition: Stable cp Diagnosis - Calculus of kidney with calculus of ureter - left cp Followup: cp - With: Collin Anderson MD - When: 2 - 3 days - Reason: Recheck today's complaints Discharge Instructions: - Discharge Summary Sheet cp - Kidney Stones cp - Renal Colic cp Forms: - Medication Reconciliation Form cp - Thank You Letter cp - Antibiotic Education cp - Prescription Opioid Use cp Prescriptions: - Flomax 0.4 mg Oral capsule - take 1 capsule by ORAL route once daily As needed 1/2 hour following the same cp meal each day; 5 capsule; Refills: 0, Product Selection Permitted - Cipro 500 mg Oral Tablet - take 1 tablet by ORAL route every 12 hours for 7 days; 14 tablet; Refills: 0, cp Product Selection Permitted - Zofran 4 mg Oral Tablet - take 1 tablet by ORAL route every 12 hours As needed; 20 tablet; Refills: 0, cp Product Selection Permitted - Tramadol 50 mg Oral Tablet - take 1 tablet by ORAL route every 8 hours as needed; 12 tablet; Refills: 0, cp Product Selection Permitted Addendum: 12/15/2020 07:39 Co-signature as Attending Physician, Sukh Chu MD I agree with the assessment and c luu plan of care. Signatures: Dispatcher [employer] Sukh White MD MD cha Ballard, Brenda RN RN Sukh Ratliff PA PA cp Donna Chaudhari, ISAURA RN kg Corrections: (The following items were deleted from the chart) 12/13 22:10 21:40 Magnesium Sulfate 1 grams IVPB once over 1 hrs ordered. cp bb 12/14 22:25 20:05 Back: Positive for flank pain, on the left, Negative for injury or acute cp deformity, decreased range of motion, cp 22:25 20:05 Abdomen/GI: Positive for abdominal pain, nausea, Negative for diarrhea, cp constipation, active vomiting, cp 22:25 20:05 Respiratory: Negative for cough, shortness of breath, wheezing, cp cp 22:25 20:05 Cardiovascular: Negative for chest pain, edema, palpitations, cp cp 22:25 20:05 Eyes: Negative for injury, pain, redness, and discharge, cp cp 22:25 20:05 Constitutional: Negative for body aches, chills, fever, poor PO intake, cp cp 22:25 20:05 ENT: Negative for ear pain, sore throat, difficulty swallowing, difficulty cp handling secretions, cp 22:25 20:05 : Negative for urinary symptoms, testicular pain cp cp 22:25 20:05 Neuro: Negative for altered mental status, headache, weakness, cp cp 22:25 20:05 All other systems are negative, cp cp
[2020-12-13] MEDS ORDERED: CEFTRIAXONE/SWI 1gm 1 GM/10 ML SYR ONE (23:51)
[2020-12-14 00:46] VITALS: BP 148/87; TEMP 97.9; O2SAT 95
== END 2020-12-14 00:08 | disposition home or self-care (01) ==
LOC: ER 18:13
DX: N20.2 Calculus of kidney with calculus of ureter (principal); F90.9 Attention-deficit hyperactivity disorder, unspecified type; F17.210 Nicotine dependence, cigarettes, uncomplicated; Z87.442 Personal history of urinary calculi
CPT/HCPCS: 96361; 85025; 87086; 80048; 36415; 80076; 81003; 83690; 74176; 96375; 96374; 99284; J1170 ×2; J0696; J7030; J2405; 87088